=== PATIENT | male | born 1995 | race Caucasian/White ===

== ENCOUNTER 2016-06-11 13:36 | Emergency (ER) | payer OTHER ==
[2016-06-11] MEDS ORDERED: Sodium Chloride 0.9% 1,000 ML IV ONE (13:51)
[2016-06-11] MEDS ORDERED: Sodium Chloride 0.9% 1,000 ML ONE (13:58)
[2016-06-11 14:19] LABS: BASO % 0.4 % (0.0-2.0); EOS # 0.1 K/uL (0.0-0.7); EOS % 0.8 % (0.0-4.0); HEMATOCRIT 42.8 % (35.0-51.0); LYMPH # 2.9 K/uL (1.0-4.3); LYMPH % 35.9 % (20.0-40.0); MEAN CELL VOLUME 82.2 fL (80.0-94.0); MEAN CORPUSCULAR HGB CONC 32.8 g/dL (33.0-37.0); MEAN PLATELET VOLUME 9.2 fL (7.2-11.7); MONO # 0.6 K/uL (0.0-0.8); MONO % 7.2 % (0.0-10.0); NRBC % 0.1 % (0.0-2.0); RBC URINE 54 /hpf (0-3); RED CELL DISTRIBUTION WIDTH 13.3 % (11.5-14.5); URINE BILIRUBIN NEGATIVE (NEGATIVE); URINE BLOOD 2+ (NEGATIVE); URINE COLOR Yellow (YELLOW); URINE GLUCOSE (UA) NORMAL (Normal); URINE KETONE NEGATIVE (NEGATIVE); URINE LEUKOCYTE ESTERASE NEG Leu/uL (Negative); URINE PROTEIN NEGATIVE (NEGATIVE); URINE UROBILINOGEN NORMAL mg/dL (0.2-1.0); WBC URINE < 1 /hpf (0-5); WHITE BLOOD COUNT 8.2 K/uL (4.8-10.8)
[2016-06-11 14:21] LABS: CHLORIDE 100 mmol/L (98-107); SODIUM 141 mmol/L (132-148)
[2016-06-11 14:23] LABS: AST/SGOT 19 U/L (17-59); BILIRUBIN,TOTAL 0.5 mg/dL (0.2-1.3); CARBON DIOXIDE 24 mmol/L (22-30); GFR AFRICAN-AMERICAN > 60
[2016-06-11 14:24] LABS: ALB/GLOB RATIO 1.2 (1.0-2.1); ALKALINE PHOSPHATASE 84 U/L (38-126); ALT/SGPT 15 U/L (21-72); BLOOD UREA NITROGEN 13 mg/dL (9-20); GLUCOSE,RANDOM 95 mg/dL (75-110); TOTAL PROTEIN 8.5 g/dL (6.3-8.3)
--- NOTE | 2016-06-11 15:01 | CT ---
PROCEDURE: CT Abdomen and Pelvis without Oral or IV contrast. HISTORY: Right flank pain COMPARISON: None available. TECHNIQUE: Contiguous axial images of the abdomen and pelvis. No oral or IV contrast administered. Coronal and Sagittal reformats generated and reviewed. This CT exam was performed using 1 or more of the following dose reduction techniques: Automated exposure control, adjustment of the MAA and/or kV according to patient size, and/or use of iterative reconstruction technique Radiation dose: Total exam DLP = 910.84 mGy-cm. FINDINGS: There is limited evaluation of the solid organs without the administration of IV contrast. LOWER THORAX: No visible consolidation, pleural effusion, or pneumothorax. LIVER: Unremarkable unenhanced appearance. GALLBLADDER AND BILE DUCTS: Unremarkable unenhanced appearance. PANCREAS: Unremarkable unenhanced appearance. SPLEEN: Unremarkable unenhanced appearance. ADRENALS: Unremarkable unenhanced appearance. KIDNEYS AND URETERS: 3 mm distal right ureteral calculus (series 3, image 174) with proximal hydroureteronephrosis. Additional punctate nonobstructing bilateral renal calculi noted. No left-sided hydronephrosis. BLADDER: The urinary bladder appears unremarkable. REPRODUCTIVE: Unremarkable unenhanced appearance. APPENDIX: The appendix appears within normal limits of caliber. No secondary signs of acute appendicitis. BOWEL: The stomach is nondistended. Lack of oral contrast limits evaluation for bowel pathology. The bowel loops appear within normal limits of caliber without evidence of intestinal obstruction.Most of the colon is decompressed, limiting evaluation for focal or diffuse pathology. PERITONEUM: No significant free fluid. No definite free air. LYMPH NODES: Prominent sub cm bilateral inguinal lymph nodes, nonspecific. VASCULATURE: No aortic aneurysm. BONES: No acute osseous abnormality is detected. OTHER FINDINGS: None. IMPRESSION: 3 mm distal right ureteral calculus with proximal hydroureteronephrosis. Additional punctate nonobstructing bilateral renal calculi noted. No left-sided hydronephrosis.
[2016-06-11 15:07] VITALS: PULSE 58; TEMP 97.4
[2016-06-11] MEDS ORDERED: Morphine 4 MG/ML VIAL ONE (15:26)
--- NOTE | 2016-06-11 15:38 | C.PDOC ---
Time Seen by Provider: 06/11/16 13:47 Chief Complaint (Nursing): Male Genitourinary History Per: Patient Onset/Duration Of Symptoms: Hrs (since waking up this morning), Waxing/Waning Current Symptoms Are (Timing): Still Present Severity: Severe Location Of Pain/Discomfort: Other (Right flank) Radiation Of Pain To:: Back, Flank Quality Of Discomfort: "Pain" Exacerbating Factors: None Alleviating Factors: None Additional History Per: Prior Records Past Medical History Reviewed: Historical Data, Nursing Documentation, Vital Signs Vital Signs: Last Vital Signs Temp 97.4 F L 06/11/16 15:06 Pulse 58 L 06/11/16 15:06 Resp 20 06/11/16 15:06 BP 139/75 06/11/16 15:06 Pulse Ox 98 06/11/16 15:06 - Medical History PMH: No Chronic Diseases Surgical History: No Surg Hx Family History: States: Other (Kidney stones) - Social History Hx Tobacco Use: No Hx Alcohol Use: No Hx Substance Use: No - Immunization History Hx Tetanus Toxoid Vaccination: No Hx Influenza Vaccination: No Hx Pneumococcal Vaccination: No Review Of Systems Except As Marked, All Systems Reviewed And Found Negative. Constitutional: Negative for: Fever, Weakness Cardiovascular: Negative for: Chest Pain Respiratory: Negative for: Shortness of Breath Gastrointestinal: Positive for: Abdominal Pain. Negative for: Vomiting, Diarrhea Genitourinary: Negative for: Dysuria, Scrotal Pain Musculoskeletal: Positive for: Back Pain. Negative for: Neck Pain Skin: Negative for: Rash Neurological: Negative for: Weakness, Numbness, Seizures, Altered Mental Status Physical Exam - Physical Exam Appears: Non-toxic, Other (Uncomfortable in pain) Skin: Normal Color, Warm, Dry, No Rash Head: Atraumatic, Normacephalic Eye(s): bilateral: PERRL, EOMI Neck: Normal ROM, Supple Cardiovascular: Rhythm Regular Respiratory: Normal Breath Sounds, No Accessory Muscle Use Gastrointestinal/Abdominal: Soft, Tenderness (right sided), No Distention, No Guarding, No Rebound Back: CVA Tenderness (right) Extremity: Normal ROM Neurological/Psych: Oriented x3, Normal Motor, Normal Sensation ED Course And Treatment - Laboratory Results Result Diagrams: 06/11/16 14:03 06/11/16 14:03 Interpretation Of Abnormal: Microscopic hematuria O2 Sat by Pulse Oximetry: 98 Pulse Ox Interpretation: Normal - CT Scan/US CT abd/pelv Other Rad Studies (CT/US): Read By Radiologist, Radiology Report Reviewed CT/US Interpretation: IMPRESSION: 3 mm distal right ureteral calculus with proximal hydroureteronephrosis. Additional punctate nonobstructing bilateral renal calculi noted. No left-sided hydronephrosis. Progress - Interventions Interventions:: Observation, Intravenous fluid - Medications Administered Intravenous: NSAID, Opiate - Data Reviewed Data Reviewed: Lab, Diagnostic imaging, Old records - Patient Status Patient status: Mostly improved - Continuity of Care Discussed patient case with:: Patient, Family-HIPPA compliant, ED Nurse - Patient Plan Patient Plan: Discharge, F/U with PCP Disposition Counseled Patient/Family Regarding: Studies Performed, Diagnosis, Need For Followup, Rx Given - Disposition Referrals: Jarocho Martinez MD [Family Provider] - Gigi Marc MD [Staff Provider] - Disposition: HOME/ ROUTINE Disposition Time: 15:43 Condition: IMPROVED Additional Instructions: Drink plenty of fluids. Follow up with your doctor and with a Urologist for further evaluation and treatment. Return to the ER if you develop fever, vomiting, trouble urinating, worsening of symptoms or if you have any other concerns. Prescriptions: Tamsulosin [Flomax] 0.4 mg PO HS #7 cap Naproxen [Naprosyn] 1 tab PO BID PRN #20 tab PRN Reason: Pain oxyCODONE/Acetaminophen [Percocet 5/325 mg Tab] 1 tab PO QID PRN #10 tab PRN Reason: Pain, Severe (8-10) Instructions: Renal Colic (ED) Print Language: LITHUANIAN - Clinical Impression Clinical Impression: Right distal ureteral calculus
[2016-06-11 15:59] VITALS: BP 100/61; RESP 18; O2SAT 100
== END 2016-06-11 15:59 | disposition home or self-care (01) ==
LOC: C.ER 13:36
DX: N13.2 Hydronephrosis with renal and ureteral calculous obstruction (principal)
CPT/HCPCS: 74176; 80053; 81001; 83690; 85025; 96361; 96374; 96375; 99285; J1885; J2270; J7040

== ENCOUNTER 2017-08-28 00:48 | Emergency (ER) | payer OTHER ==
[2017-08-28] MEDS ORDERED: Sodium Chloride 0.9% 1,000 ML IV ONE (01:08)
--- NOTE | 2017-08-28 01:17 | C.PDOC ---
History Of Present Illness 21 year old male presents to the ER with a complaint of right flank pain that began earlier this afternoon. Patient has a Hx of kidney stones in the past. Denies nausea, vomiting, dysuria, or hematuria. Chief Complaint (Nursing): Male Genitourinary History Per: Patient History/Exam Limitations: no limitations Onset/Duration Of Symptoms: Hrs Current Symptoms Are (Timing): Still Present Quality Of Discomfort: Unable To Describe Associated Symptoms: denies: Nausea, Vomiting, Diarrhea, Urinary Symptoms Alleviating Factors: None Recent travel outside of the [place]: No Past Medical History Reviewed: Historical Data, Nursing Documentation, Vital Signs Vital Signs: Last Vital Signs Temp 98.0 F 08/28/17 00:58 Pulse 66 08/28/17 00:58 Resp 16 08/28/17 00:58 BP 145/87 08/28/17 00:58 Pulse Ox 99 08/28/17 01:34 - Medical History PMH: Kidney Stones, Chronic Kidney Disease Family History: States: Unknown Family Hx - Social History Hx Tobacco Use: No Hx Alcohol Use: No Hx Substance Use: No - Immunization History Hx Tetanus Toxoid Vaccination: No Hx Influenza Vaccination: No Hx Pneumococcal Vaccination: No Review Of Systems Constitutional: Negative for: Fever, Chills Cardiovascular: Negative for: Chest Pain, Palpitations Respiratory: Negative for: Cough, Shortness of Breath Gastrointestinal: Negative for: Nausea, Vomiting Genitourinary: Negative for: Dysuria, Hematuria Musculoskeletal: Positive for: Back Pain (Right flank pain) Physical Exam - Physical Exam Appears: Non-toxic Skin: Normal Color, Warm, Dry Head: Atraumatic, Normacephalic Eye(s): bilateral: Normal Inspection Oral Mucosa: Moist Chest: Symmetrical, No Tenderness Cardiovascular: Rhythm Regular Respiratory: Normal Breath Sounds, No Rales, No Rhonchi, No Wheezing Gastrointestinal/Abdominal: Soft, No Tenderness Back: CVA Tenderness (Mild right) Neurological/Psych: Oriented x3, Normal Speech ED Course And Treatment - Laboratory Results Result Diagrams: 08/28/17 01:30 08/28/17 01:30 O2 Sat by Pulse Oximetry: 99 (Room air) Pulse Ox Interpretation: Normal Progress Note: CT abd/pel, blood work, and urinalysis ordered. IV fluids and toradol administered. Disposition Counseled Patient/Family Regarding: Diagnosis - Disposition Referrals: [facility] [Outside] Siva Juarez MD [Staff Provider] - Disposition: HOME/ ROUTINE Disposition Time: 04:53 Condition: STABLE Prescriptions: Tamsulosin HCl [Flomax] 0.4 mg PO DAILY #10 cap.er.24h traMADol/Acetaminophen [Ultracet 325 MG-37.5 MG] 1 tab PO Q4 #20 tab Instructions: Renal Colic (DC) Forms: [employer] (Portuguese) - POA Present On Arrival: None - Clinical Impression Clinical Impression: Renal colic - Scribe Statement The provider has reviewed the documentation as recorded by the Scribe Ananda Watson All medical record entries made by the Scribe were at my direction and personally dictated by me. I have reviewed the chart and agree that the record accurately reflects my personal performance of the history, physical exam, medical decision making, and the department course for this patient. I have also personally directed, reviewed, and agree with the discharge instructions and disposition.
[2017-08-28] MEDS ORDERED: Sodium Chloride 0.9% 1,000 ML ONE ×2 (01:22→03:20)
[2017-08-28 01:34] LABS: BASO # 0.1 K/uL (0.0-0.2); BASO % 0.6 % (0.0-2.0); EOS # 0.1 K/uL (0.0-0.7); EOS % 0.8 % (0.0-4.0); LYMPH # 3.2 K/uL (1.0-4.3); LYMPH % 24.9 % (20.0-40.0); MEAN CELL VOLUME 81.6 fL (80.0-94.0); MEAN CORPUSCULAR HEMOGLOBIN 28.2 pg (27.0-31.0); MEAN CORPUSCULAR HGB CONC 34.6 g/dL (33.0-37.0); MEAN PLATELET VOLUME 8.9 fL (7.2-11.7); MONO # 1.1 K/uL (0.0-0.8); MONO % 8.5 % (0.0-10.0); NEUT # 8.4 K/uL (1.8-7.0); NEUT % 65.2 % (50.0-75.0); NRBC % 0.1 % (0.0-2.0); RBC 4.96 Mil/uL (4.40-5.90); WHITE BLOOD COUNT 12.9 K/uL (4.8-10.8)
[2017-08-28 01:56] LABS: ALB/GLOB RATIO 1.2 (1.0-2.1); ALBUMIN 4.8 g/dL (3.5-5.0); ALT/SGPT 24 U/L (21-72); AST/SGOT 24 U/L (17-59); BLOOD UREA NITROGEN 18 mg/dL (9-20); CALCIUM 9.4 mg/dl (8.6-10.4); GFR AFRICAN-AMERICAN > 60; GFR NON-AFRICAN AMERICAN > 60; LIPASE 64 U/L (23-300)
[2017-08-28] MEDS ORDERED: Morphine 4 MG/ML VIAL ONE (04:29)
[2017-08-28 04:48] LABS: SQUAMOUS EPITHIAL < 1 /hpf (0-5); URINE BILIRUBIN NEGATIVE (NEGATIVE); URINE BLOOD NEGATIVE (NEGATIVE); URINE CLARITY Clear (Clear); URINE COLOR Yellow (YELLOW); URINE GLUCOSE (UA) NORMAL (Normal); URINE LEUKOCYTE ESTERASE NEG Leu/uL (Negative); URINE PROTEIN NEGATIVE (NEGATIVE); URINE UROBILINOGEN NORMAL mg/dL (0.2-1.0)
[2017-08-28 05:23] VITALS: BP 136/78; PULSE 64; RESP 17; O2SAT 98
[2017-08-28 05:24] VITALS: TEMP 97.8
--- NOTE | 2017-08-28 15:27 | CT ---
PROCEDURE: CT abdomen pelvis without contrast. . HISTORY: Right flank pain COMPARISON: None. TECHNIQUE: Contiguous axial images of the abdomen and pelvis. Oral contrast was administered. No IV contrast given. Coronal and Sagittal reformats generated. This CT exam was performed using one or more of the following dose reduction techniques: Automated exposure control, adjustment of the mA and/or kV according to patient size, and/or use of iterative reconstruction technique. Total exam DLP = 1279.53 mGy-cm. FINDINGS: LOWER THORAX: Heart size normal. No evidence of pericardial effusion. Lung bases clear. No evidence of infiltrate effusion or basilar pneumothorax. Mild changes of bilateral gynecomastia. LIVER: Liver is mildly enlarged measuring over 22 cm in CC dimension. . GALLBLADDER AND BILE DUCTS: Unremarkable. PANCREAS: Unremarkable. No mass. No ductal dilatation. SPLEEN: Spleen is mildly enlarged measuring over 13 cm in AP dimension. No splenic mass collection or calcification. . ADRENALS: Unremarkable. KIDNEYS AND URETERS: There is an approximately 2.6 mm calculus within the proximal/mid right ureter with mild right-sided hydronephrosis. Punctate calcification also seen in the right renal collecting system. The least 2 punctate calcifications seen in the left renal collecting system. . No evidence of left-sided hydronephrosis. BLADDER: Urinary bladder is incompletely distended which may account for slight thick-walled appearance. Muscular hypertrophy may contribute. REPRODUCTIVE: Unremarkable. APPENDIX: Normal-appearing appendix best seen on axial image number history 142- 160. BOWEL: Unremarkable. No obstruction. No gross mural thickening. PERITONEUM: Unremarkable. No fluid collection. No free air. Small fat containing umbilical hernia. LYMPH NODES: Unremarkable. No enlarged lymph nodes. VASCULATURE: Unremarkable. No aortic aneurysm. BONES: No fracture or destructive lesion. OTHER FINDINGS: None. IMPRESSION: 2.6 mm obstructing calculus proximal to mid right ureter with mild right-sided hydronephrosis. Additionally, there are punctate calcifications both renal collecting systems as above. Mild hepatomegaly. Mild splenomegaly.
== END 2017-08-28 05:24 | disposition home or self-care (01) ==
LOC: C.ER 00:48
DX: N23 Unspecified renal colic (principal); N18.9 Chronic kidney disease, unspecified
CPT/HCPCS: 74176; 80053; 81001; 83690; 85025; 87086; 96374; 96375; 96376; 99283; J1885; J2270; J2405; J7030